=== PATIENT | female | born 1990 | race Caucasian/White ===

== ENCOUNTER 2017-06-10 04:24 | Emergency (ER) | payer MEDICAID ==
[~2017-06-10] VITALS: Ht 162.6 cm; Wt 72.0 kg
[2017-06-10] MEDS ORDERED: AMOX125T PO (04:55)
[2017-06-10] MEDS ORDERED: CLIN-60 PO (04:55)
[2017-06-10] MEDS ORDERED: MAALOX/HYOSCYAMINE/LIDOCAINE 45 ML BTL PO ONE (05:00)
[2017-06-10] MEDS ORDERED: DIPHENHYDRAMINE 50 MG/ML, 1ML IVPush ONE (05:00)
[2017-06-10] MEDS ORDERED: SODIUM CHLORIDE 0.9% 1,000ML IVBOLUS ONE (05:00)
[2017-06-10] MEDS ORDERED: SODIUM CHLORIDE FLUSH 10ML SYR IVF ONE (05:00)
[2017-06-10] MEDS ORDERED: DEXAMETHASONE 4 MG/ML, 1ML IVPush ONE (05:00)
[2017-06-10] MEDS ORDERED: DIPHENHYDRAMINE 50 MG/ML, 1ML ONE (05:06)
[2017-06-10] MEDS ORDERED: MAALOX/HYOSCYAMINE/LIDOCAINE 45 ML BTL ONE (05:07)
[2017-06-10] MEDS ORDERED: DEXAMETHASONE 4 MG/ML, 5ML ONE (05:07)
[2017-06-10 05:30] LABS: HEMATOCRIT 40.4 % (34.6-47.8); HEMOGLOBIN 13.4 g/dL (11.7-16.4); WHITE BLOOD COUNT 6.9 x10^3/uL (3.4-10)
[2017-06-10 05:32] LABS: BLOOD UREA NITROGEN 21 mg/dL (7-18)
[2017-06-10 05:43] LABS: IS PT STATUS REG ER OR PRE ER? YES
[2017-06-10 06:10] VITALS: BP 121/78
== END 2017-06-10 06:12 | disposition home or self-care (01) ==
LOC: ED 04:56
DX: T78.40XA Allergy, unspecified, initial encounter (principal); L50.0 Allergic urticaria
CPT/HCPCS: 36415; 71010; 80048; 82040; 84484; 84703; 85025; 93005; 96361; 96374; 96375; 99285; J1100; J1200; J7030

== ENCOUNTER 2017-07-09 08:50 | Inpatient (IN) | payer MEDICAID ==
[~2017-07-09] VITALS: Ht 160 cm; Wt 75.6 kg
[~2017-07-09 08:50] MED LIST: AMOX125T PO; CLIN150C14 PO
[2017-07-09] MEDS ORDERED: ONDANSETRON 2MG/ML, 2ML ONE (09:54)
[2017-07-09] MEDS ORDERED: MORPHINE SULFATE 4 MG/ML, 1ML ONE ×3 (09:54→13:22)
[2017-07-09] MEDS ORDERED: SODIUM CHLORIDE FLUSH 10ML SYR IVF ONE (10:00)
[2017-07-09] MEDS ORDERED: ONDANSETRON 2MG/ML, 2ML IVPush ONE (10:00)
[2017-07-09] MEDS ORDERED: SODIUM CHLORIDE 0.9% 1,000ML IVBOLUS ONE (10:00)
[2017-07-09] MEDS: MORPHINE SULFATE 4 MG/ML, 1ML IVPush PRN ×2 (10:04→11:24)
[2017-07-09 10:39] LABS: HEMATOCRIT 39.9 % (34.6-47.8); HEMOGLOBIN 13.5 g/dL (11.7-16.4); WHITE BLOOD COUNT 9.9 x10^3/uL (3.4-10)
[2017-07-09 10:41] LABS: ASPARTATE AMINO TRANSFERASE 11 U/L (15-37); BLOOD UREA NITROGEN 15 mg/dL (7-18)
[2017-07-09] MEDS ORDERED: CEFTRIAXONE PMX 1GM/50ML 50 ML IVPB ONE (11:30)
[2017-07-09] MEDS ORDERED: CEFTRIAXONE PMX 1GM/50ML 50 ML ONE (11:51)
[2017-07-09] MEDS ORDERED: HYDROmorphone 1 MG/ML, 1ML IVPush PRN (14:00)
[2017-07-09] MEDS ORDERED: OMNIPAQUE 350 MG/ML, 100ML BOTTLE ONE (14:13)
[2017-07-09] MEDS ORDERED: HYDROmorphone 1 MG/ML, 1ML ONE (14:38)
[2017-07-09] MEDS ORDERED: CIPROFLOXACIN/PMX 400MG/200ML 100 ML IVPB ONE (16:00)
[2017-07-09] MEDS ORDERED: SODIUM CHLORIDE FLUSH 10ML SYR IVF PRN (17:00)
[2017-07-09] MEDS ORDERED: hydrALAzine 20 MG/ML, 1ML IVPush PRN (17:00)
[2017-07-09] MEDS ORDERED: TEMAZEPAM 15 MG CAPSULE PO PRN (17:00)
[2017-07-09] MEDS ORDERED: ONDANSETRON 2MG/ML, 2ML IVPush PRN (17:00)
[2017-07-09] MEDS ORDERED: NICOTINE 14MG/24 HR PATCH.TD24 ONE (17:10)
[2017-07-09] MEDS ORDERED: CIPROFLOXACIN/PMX 400MG/200ML 200 ML ONE (17:10)
[2017-07-09] MEDS: SODIUM CHLORIDE 0.9% 1,000 ML IV SCH (17:15)
[2017-07-09] MEDS: NICOTINE 14MG/24 HR PATCH.TD24 TD SCH ×2 (17:16→17:17)
[2017-07-09 18:31] VITALS: BP 108/71
[2017-07-09] MEDS: METRONIDAZOLE PMX 500MG/100ML 100 ML IV SCH (21:01)
[2017-07-09] MEDS: morphine SULFATE 10 MG/ML, 1ML IVPush PRN (21:01)
[2017-07-09] MEDS: ACETAMINOPHEN 325 MG TABLET PO PRN (23:35)
[2017-07-10 03:18] VITALS: BP 95/61
[2017-07-10] MEDS: morphine SULFATE 10 MG/ML, 1ML IVPush PRN ×4 (04:52→21:52)
[2017-07-10] MEDS: METRONIDAZOLE PMX 500MG/100ML 100 ML IV SCH ×3 (04:52→21:38)
[2017-07-10] MEDS: SODIUM CHLORIDE 0.9% 1,000 ML IV SCH ×3 (04:52→21:39)
[2017-07-10 05:14] LABS: HEMATOCRIT 35.4 % (34.6-47.8); WHITE BLOOD COUNT 7.8 x10^3/uL (3.4-10)
[2017-07-10 05:33] LABS: ASPARTATE AMINO TRANSFERASE 9 U/L (15-37); BLOOD UREA NITROGEN 10 mg/dL (7-18)
[2017-07-10 07:55] VITALS: BP 115/72
[2017-07-10] MEDS: ACETAMINOPHEN 325 MG TABLET PO PRN (08:56)
[2017-07-10] MEDS: POTASSIUM CHLORIDE 20 MEQ TAB.ER.PRT PO SCH ×2 (11:14→13:29)
[2017-07-10] MEDS: CEFTRIAXONE PMX 2GM/50ML 50 ML IV SCH (11:36)
[2017-07-10 12:02] VITALS: BP 102/68
[2017-07-10] MEDS: DIPHENHYDRAMINE 50 MG/ML, 1ML IVPush PRN (16:27)
[2017-07-10] MEDS: NICOTINE 14MG/24 HR PATCH.TD24 TD SCH (17:00)
[2017-07-10 20:20] VITALS: BP 108/69
[2017-07-11] MEDS: DIPHENHYDRAMINE 50 MG/ML, 1ML IVPush PRN ×3 (00:45→20:27)
[2017-07-11 02:45] VITALS: BP 108/65
[2017-07-11 05:04] LABS: HEMATOCRIT 33.5 % (34.6-47.8); HEMOGLOBIN 11.1 g/dL (11.7-16.4); WHITE BLOOD COUNT 6.7 x10^3/uL (3.4-10)
[2017-07-11 05:15] LABS: BLOOD UREA NITROGEN 8 mg/dL (7-18)
[2017-07-11] MEDS: METRONIDAZOLE PMX 500MG/100ML 100 ML IV SCH ×3 (05:41→20:16)
[2017-07-11 07:43] VITALS: BP 92/59
[2017-07-11] MEDS: SODIUM CHLORIDE 0.9% 1,000 ML IV SCH ×3 (07:55→23:58)
[2017-07-11] MEDS: morphine SULFATE 10 MG/ML, 1ML IVPush PRN ×2 (07:55→16:26)
[2017-07-11 12:00] VITALS: BP 107/73
[2017-07-11] MEDS: CEFTRIAXONE PMX 2GM/50ML 50 ML IV SCH (12:23)
[2017-07-11] MEDS: NICOTINE 14MG/24 HR PATCH.TD24 TD SCH (17:07)
[2017-07-11] MEDS: ACETAMINOPHEN 325 MG TABLET PO PRN (20:16)
[2017-07-11 20:58] VITALS: BP 107/70
[2017-07-12 02:31] VITALS: BP 109/69
[2017-07-12] MEDS: METRONIDAZOLE PMX 500MG/100ML 100 ML IV SCH ×3 (05:22→21:32)
[2017-07-12 06:50] VITALS: BP 111/76
[2017-07-12] MEDS: morphine SULFATE 10 MG/ML, 1ML IVPush PRN (07:30)
[2017-07-12] MEDS: SODIUM CHLORIDE 0.9% 1,000 ML IV SCH ×3 (07:34→23:46)
[2017-07-12 12:56] VITALS: BP 109/70
[2017-07-12] MEDS: ACETAMINOPHEN 325 MG TABLET PO PRN (13:44)
[2017-07-12] MEDS: CEFTRIAXONE PMX 2GM/50ML 50 ML IV SCH (14:18)
[2017-07-12] MEDS: OXYcodone IR 5MG TABLET PO PRN (16:10)
[2017-07-12 18:48] VITALS: BP 113/70
[2017-07-12] MEDS: NICOTINE 14MG/24 HR PATCH.TD24 TD SCH (20:00)
[2017-07-12] MEDS: DIPHENHYDRAMINE 50 MG/ML, 1ML IVPush PRN (21:42)
[2017-07-13 02:00] VITALS: BP 110/74
[2017-07-13] MEDS: DIPHENHYDRAMINE 50 MG/ML, 1ML IVPush PRN (04:55)
[2017-07-13] MEDS: METRONIDAZOLE PMX 500MG/100ML 100 ML IV SCH ×2 (04:55→12:30)
[2017-07-13 06:53] VITALS: BP 83/52
[2017-07-13 07:14] VITALS: BP 160/69
[2017-07-13] MEDS: SODIUM CHLORIDE 0.9% 1,000 ML IV SCH (07:21)
[2017-07-13] MEDS: CEFTRIAXONE PMX 2GM/50ML 50 ML IV SCH (11:39)
[2017-07-13] MEDS: OXYcodone IR 5MG TABLET PO PRN (12:29)
[2017-07-13 14:04] VITALS: BP 118/74
[2017-07-13] MEDS ORDERED: TRAM50TA2 PO (16:02)
[2017-07-13] MEDS ORDERED: CEFD300C37 PO (16:06)
[2017-07-13] MEDS ORDERED: METR500T PO (16:06)
== END 2017-07-13 18:18 | disposition home or self-care (01) | DRG 757 ==
LOC: ED 09:38 → SUATTDRO 16:26 → EDIP 16:38 → 3NE 18:09
PROVIDERS: ADMIT Hospitalist; ATTEND Internal Medicine
DX: N70.93 Salpingitis and oophoritis, unspecified (principal); E43 Unspecified severe protein-calorie malnutrition; N39.0 Urinary tract infection, site not specified; E87.6 Hypokalemia; Z68.29 Body mass index [BMI] 29.0-29.9, adult; Z87.891 Personal history of nicotine dependence; Z98.51 Tubal ligation status
CPT/HCPCS: 36415; 72193; 74176; 76830; 80048; 80053; 81001; 83690; 83735; 84100; 84703; 85025; 87040; 87086; 87324; 96361; 96365; 96375; J0696; J0744; J1170; J2405; Q9967; J1200; J2270; J7030